=== PATIENT | male | born 1985 | race Caucasian/White ===

== ENCOUNTER → 2021-01-13 11:00 | Outpatient (BNVA) | payer OTHER, SELFPAY | PROVIDERS: PCP Physician Assistant; Visit Provider Surgery Vascular Surgery | DX: I83.12 Varicose veins of left lower extremity with inflammation (principal) | CPT/HCPCS: 99202 ==

== ENCOUNTER 2021-01-22 10:29 | Outpatient (REF) | payer OTHER, SELFPAY ==
--- NOTE | ~2021-01-22 | US_ITS ---
EXAMINATION: RIGHT and LEFT LOWER EXTREMITY VENOUS ULTRASOUND (REFLUX EXAM) CLINICAL INDICATION: Varicose veins of the left lower extremity with inflammation. COMPARISON: None. TECHNIQUE: Color flow triplex imaging and compression Doppler was performed to evaluate both the deep and the superficial systems bilaterally. To evaluate the superficial system, the examination was performed in the upright position. Color-flow Doppler ultrasound and compression ultrasound were utilized. In addition, maneuvers were utilized to demonstrate reflux. FINDINGS: 1. DEEP VENOUS ULTRASOUND OF THE RIGHT LOWER EXTREMITY: Respiratory variation, normal compression and augmented flow are noted in the right common femoral vein as well as the right popliteal vein and there is no evidence of deep venous thrombosis at these locations. There is no evidence of reflux in the deep system in either the common femoral vein or the popliteal vein. There is no evidence of a Wyatt's cyst. No popliteal artery aneurysm. 2. SUPERFICIAL ULTRASOUND WITH DOPPLER OF RIGHT LOWER EXTREMITY: The right great saphenous vein at the saphenofemoral junction measures 11 mm, at the midthigh 4 mm with reflux up to approximately 3 seconds duration. Above the knee 5 mm, below the knee 4 mm, at mid calf 3 mm and at the ankle measures 3 mm. Reflux is only seen at the level of the midthigh within the greater saphenous vein. The right small saphenous vein measures 2 mm and shows no reflux. 3. DEEP VENOUS ULTRASOUND OF THE LEFT LOWER EXTREMITY: Respiratory variation, normal compression and augmented flow are noted in the left common femoral vein as well as the left popliteal vein and there is no evidence of deep venous thrombosis at these locations. There is no evidence of reflux in the deep system in either the common femoral vein or the popliteal vein. There is no evidence of a Wyatt's cyst. No popliteal artery aneurysm. 4. SUPERFICIAL ULTRASOUND WITH DOPPLER OF LEFT LOWER EXTREMITY: Left great saphenous vein at the saphenofemoral junction measures 6 mm, at the midthigh 3 mm with reflux up to approximately 2.5 seconds duration. Above the knee 3 mm, at the knee 2 mm. Reflux up to approximately 1 second duration, below the knee vein not identified, at midcalf 2 mm and at the ankle measures 2 mm. Reflux is noted within the left greater saphenous vein at the level of the midthigh and knee. The left small saphenous vein measures 2 mm and shows no reflux. There is a duplicate greater saphenous vein medially measuring 7 mm in diameter and with reflux time of approximately 1 second duration. US/US venous duplex LE BI IMPRESSION: 1. Saphenous vein reflux seen within the midthigh on the right and within the mid thigh and knee level on the left as well as within a medial duplicated greater saphenous vein at the saphenofemoral junction measuring approximately 1 second duration. 2. No evidence of acute deep venous thrombosis of either extremity.
== END 2021-01-22 10:30 | disposition home or self-care (01) ==
LOC: HO.US 10:29
PROVIDERS: PCP Obstetrics & Gynecology; Visit Provider Surgery Vascular Surgery
DX: I83.12 Varicose veins of left lower extremity with inflammation (principal); I83.893 Varicose veins of bilateral lower extremities with other complications
CPT/HCPCS: 93970

== ENCOUNTER → 2021-02-05 10:13 | Outpatient (BNVA) | payer OTHER, SELFPAY | PROVIDERS: PCP Internal Medicine; Visit Provider Surgery Vascular Surgery | DX: I83.12 Varicose veins of left lower extremity with inflammation (principal) | CPT/HCPCS: 99212 ==

== ENCOUNTER 2023-11-26 01:00 | Emergency (ER) | payer OTHER, SELFPAY ==
[2023-11-26 01:25] VITALS: BP 130/89; PULSE 100; RESP 20; TEMP 36.6; O2SAT 97; BMI 31.6
--- NOTE | 2023-11-26 01:50 | ED.SKABFB ---
HPI - Skin/Abscess/Foreign Bdy General Chief complaint: Skin/Abscess/Foreign Body Stated complaint: Small Head Lac Time Seen by Provider: 11/26/23 01:49 Source: patient Mode of arrival: ambulatory Limitations: no limitations History of Present Illness HPI narrative: Patient with frequent sweat gland infection of the scalp area last night patient removed small plug and now has a small open wound. 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 has taken antibiotic course without much relief Related Data Previous Rx's Medication Instructions Recorded mupirocin 2 % topical ointment 1 appl topical BID #15 grams 11/26/23 Allergies Allergy/AdvReac Type Severity Reaction Status Date / Time No Known Allergies Allergy Verified 11/26/23 01:25 [No Known Allergies*] Review of Systems Review of Systems: Yes all other systems are reviewed and are negative [facility] Social History Social History Smoked in Last 30 Days: No Use of substances other than those prescribed or required for medical reasons: Yes Substance Use Type: Marijuana Substance Use Frequency: Chronic Longstanding Advance Directives: No Advance Directives Information Provided: No Physical Exam Vital Signs: Vital Signs: Last Vital Signs Temp 98 F 11/26/23 01:25 Pulse 100 11/26/23 01:25 Resp 20 11/26/23 01:25 BP 130/89 11/26/23 01:25 Pulse Ox 97 11/26/23 01:25 O2 Del Method Room Air 11/26/23 01:25 BMI result Body Mass Index 31.6 HEENT: Head images: 1. 3 mm hole in the top of the skull or significant infection Medical Decision Making Medical Decision Making MDM Narrative: Patient has small open wound on the scalp advised to use Bactroban and local care Discharge Plan Discharge Clinical Impression: Open wound of scalp Patient Disposition: Home, Self-Care Instructions: Acute Wounds (ED) Additional Instructions: Local care as advised Apply Bactroban ointment twice daily until healed completely Prescriptions: New mupirocin 2 % ointment 1 appl topical BID Qty: 15 0RF
== END 2023-11-26 02:29 | disposition home or self-care (01) ==
PROVIDERS: Emergency Provider Internal Medicine; PCP Internal Medicine Rheumatology
DX: S01.00XA Unspecified open wound of scalp, initial encounter (principal); X58.XXXA Exposure to other specified factors, initial encounter; L73.2 Hidradenitis suppurativa; Y93.9 Activity, unspecified; Y92.9 Unspecified place or not applicable; Y99.9 Unspecified external cause status
CPT/HCPCS: 99283; 99284